=== PATIENT | male | born 1980 | race American Indian/Alaskan Native ===

== ENCOUNTER 2018-09-07 17:31 | Emergency (ER) | payer SELFPAY ==
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
== END 2018-09-07 18:12 | disposition left against medical advice (07) ==
LOC: ED 17:31

== ENCOUNTER 2019-12-18 07:30 | Emergency (ER) | payer BC ==
[2019-12-18 08:34] VITALS: BP 132/82
[2019-12-18 08:39] LABS: Basophils # (Auto) 0.1 K/mm3 (0.0-0.1); Basophils % (Auto) 1.3 % (0.0-1.8); Hematocrit 43.6 % (35.5-45.6); Hemoglobin 14.7 gm/dl (11.8-15.2); Lymphocytes # (Auto) 2.6 K/mm3 (1.2-5.4); Lymphocytes % (Auto) 26.8 % (13.4-35.0); Mean Corpuscular HGB Conc 34 % (32-34); Mean Corpuscular Volume 98 fl (84-94); Monocytes # (Auto) 0.9 K/mm3 (0.0-0.8); Monocytes % (Auto) 8.8 % (0.0-7.3); Platelet Count 314 K/mm3 (140-440); Red Blood Count 4.45 M/mm3 (3.65-5.03)
--- NOTE | 2019-12-18 08:42 | Emergency Department Report ---
ED General Adult HPI - General Chief complaint: GI Bleed Stated complaint: BLOOD IN STOOL Time Seen by Provider: 12/18/19 08:11 Source: patient Mode of arrival: Ambulatory Limitations: No Limitations - History of Present Illness Initial comments: This is a 39-year-old man who has a history of hemorrhoids, alcohol abuse and mental health disorder per previous records. He states he has had rectal bleeding this morning. He has had it before attributed to hemorrhoids. He is not actively bleeding. He does not describe abnormal stool. He denies fever or chills. He denies abdominal pain nausea or vomiting. He does not report trauma. -: Gradual, minutes(s) Severity scale (0 -10): 0 Associated Symptoms: denies other symptoms - Related Data Home Medications Medication Instructions Recorded Confirmed Last Taken No Known Home Medications [No 01/17/14 01/17/14 Unknown Reported Home Medications] Allergies Allergy/AdvReac Type Severity Reaction Status Date / Time No Known Allergies Allergy Verified 12/18/19 07:31 ED Review of Systems ROS: Stated complaint: BLOOD IN STOOL Other details as noted in HPI Constitutional: denies: chills, fever Eyes: denies: eye pain, eye discharge, vision change ENT: denies: ear pain, throat pain Respiratory: denies: cough, shortness of breath, wheezing Cardiovascular: denies: chest pain, palpitations Endocrine: no symptoms reported Gastrointestinal: as per HPI, hematochezia. denies: abdominal pain, nausea, diarrhea Genitourinary: denies: urgency, dysuria Musculoskeletal: denies: back pain, joint swelling, arthralgia Skin: denies: rash, lesions Neurological: denies: headache, weakness, paresthesias Psychiatric: denies: anxiety, depression Hematological/Lymphatic: denies: easy bleeding, easy bruising ED Past Medical Hx - Past Medical History Hx Hypertension: Yes Hx Psychiatric Treatment: Yes (DEPRESSION) - Social History Smoking Status: Current Every Day Smoker Substance Use Type: None - Medications Home Medications: Home Medications Medication Instructions Recorded Confirmed Last Taken Type No Known Home Medications [No 01/17/14 01/17/14 Unknown History Reported Home Medications] ED Physical Exam - General Limitations: No Limitations General appearance: alert, in no apparent distress - Head Head exam: Present: atraumatic, normocephalic - Eye Eye exam: Present: normal appearance. Absent: scleral icterus - ENT ENT exam: Present: mucous membranes moist - Neck Neck exam: Present: normal inspection - Respiratory Respiratory exam: Present: normal lung sounds bilaterally. Absent: respiratory distress - Cardiovascular Cardiovascular Exam: Present: regular rate, normal rhythm. Absent: systolic murmur, diastolic murmur, rubs, gallop - GI/Abdominal GI/Abdominal exam: Present: soft, normal bowel sounds. Absent: distended, tenderness, guarding, rebound - Rectal Rectal exam: Present: heme (-) stool, hemorrhoids (External hemorrhoids). Absent: mass, tenderness - Extremities Exam Extremities exam: Present: normal inspection - Back Exam Back exam: Present: normal inspection - Neurological Exam Neurological exam: Present: alert, oriented X3, CN II-XII intact. Absent: motor sensory deficit - Psychiatric Psychiatric exam: Present: normal affect, normal mood - Skin Skin exam: Present: warm, dry, intact, normal color. Absent: rash ED Course Vital Signs 12/18/19 12/18/19 07:31 08:24 Temperature 97.5 F L Pulse Rate 66 62 Respiratory 18 18 Rate Blood Pressure 146/76 Blood Pressure 132/82 [Left] O2 Sat by Pulse 100 99 Oximetry ED Medical Decision Making - Lab Data Result diagrams: 12/18/19 08:20 12/18/19 08:14 Laboratory Results - last 24 hr 12/18/19 12/18/19 12/18/19 08:14 08:20 08:20 WBC 9.9 RBC 4.45 Hgb 14.7 Hct 43.6 MCV 98 H MCH 33 H MCHC 34 RDW 14.0 Plt Count 314 Lymph % (Auto) 26.8 [place] % (Auto) 8.8 H Eos % (Auto) 0.0 Baso % (Auto) 1.3 Lymph # 2.6 [place] # 0.9 H Eos # 0.0 Baso # 0.1 Seg Neutrophils % 63.1 Seg Neutrophils # 6.2 PT 12.5 INR 0.95 APTT 26.8 Sodium 136 L Potassium 4.0 Chloride 97.5 L Carbon Dioxide 26 Anion Gap 17 BUN 15 Creatinine 1.0 Estimated GFR > 60 BUN/Creatinine Ratio 15 Glucose 101 H Calcium 9.6 Total Bilirubin Direct Bilirubin Indirect Bilirubin AST ALT Alkaline Phosphatase Total Protein Albumin Albumin/Globulin Ratio 12/18/19 08:22 WBC RBC Hgb Hct MCV MCH MCHC RDW Plt Count Lymph % (Auto) [place] % (Auto) Eos % (Auto) Baso % (Auto) Lymph # [place] # Eos # Baso # Seg Neutrophils % Seg Neutrophils # PT INR APTT Sodium Potassium Chloride Carbon Dioxide Anion Gap BUN Creatinine Estimated GFR BUN/Creatinine Ratio Glucose Calcium Total Bilirubin < 0.20 Direct Bilirubin < 0.2 Indirect Bilirubin 0.0 AST 28 ALT 18 Alkaline Phosphatase 104 Total Protein 7.4 Albumin 4.6 Albumin/Globulin Ratio 1.6 Critical care attestation.: If time is entered above; I have spent that time in minutes in the direct care of this critically ill patient, excluding procedure time. ED Disposition Clinical Impression: Rectal bleeding, External hemorrhoids Disposition: TO HOME OR SELFCARE Is pt being admited?: No Does the pt Need Aspirin: No Condition: Stable Instructions: Hemorrhoids (ED), Rectal Bleeding (ED) Additional Instructions: Medicine for hemorrhoids is available [id number]. I do recommend that you be evaluated with a headstart teacher. They may recommend colonoscopy for blood in your stool. You cannot definitely attribute this to hemorrhoids. Your stool test today was negative for blood. However, see referral for GI evaluation. Referrals: PRIMARY CARE [Primary Care Provider] - 3-5 Days [facility] [Provider Group] - 3-5 Days [facility] [Provider Group] - 3-5 Days Forms: Accompanied Note Time of Disposition: 11:11
[2019-12-18 08:53] LABS: BUN/Creatinine Ratio 15; Blood Urea Nitrogen 15 mg/dL (9-20); Calcium 9.6 mg/dL (8.4-10.2); Hemolysis Index 24
[2019-12-18 08:56] LABS: Alanine Aminotransferase 18 units/L (7-56); Albumin 4.6 g/dL (3.9-5)
[2019-12-18 08:58] LABS: INR 0.95 (0.87-1.13)
[2019-12-18 08:59] LABS: Partial Thromboplastin Time 26.8 Sec. (24.2-36.6)
[2019-12-18 09:07] LABS: Bilirubin,Direct < 0.2 mg/dL (0-0.2)
== END 2019-12-18 11:41 | disposition home or self-care (01) ==
LOC: ED 07:30
DX: K62.5 Hemorrhage of anus and rectum (principal); K64.4 Residual hemorrhoidal skin tags; I10 Essential (primary) hypertension; F32.9 Major depressive disorder, single episode, unspecified; F17.200 Nicotine dependence, unspecified, uncomplicated
CPT/HCPCS: 36415; 80048; 80076; 82271; 85025; 85610; 85730

== ENCOUNTER 2021-12-08 22:28 | Emergency (ER) | payer BC ==
[2021-12-09] MEDS ORDERED: AMOXICILLIN/K CLAV 500/125MG TAB PO ONE (01:46)
[2021-12-09] MEDS ORDERED: KETOROLAC 30 MG/1 ML INJ IM ONE (01:46)
[2021-12-09] MEDS ORDERED: ONDANSETRON 4 MG ODT TAB PO ONE (01:46)
[2021-12-09] MEDS ORDERED: oxyCODONE /ACETAMINOPHEN 5-325MG TAB PO ONE (01:46)
--- NOTE | 2021-12-09 02:09 | Emergency Department Report ---
ED General Adult HPI - General Chief complaint: Dental/Oral Stated complaint: MOUTH PAIN Source: patient Mode of arrival: Ambulatory Limitations: No Limitations - History of Present Illness Initial comments: Patient is a 41-year-old -Citizen Of [place] male with a history of hypertension and anxiety with depression who presents to the ED with complaint of acute onset persistent left mandibular premolar and molar toothache with swollen gums for the last 1 week, but which got worse in the last 2 days. Patient states that he has not been able to eat anything or sleep because of worsening pain despite taking [id number] medications for pain. Patient denies dizziness, syncope, chest pain or shortness of breath, change in vision, headache, numbness and tingling or weakness of upper and lower extremities bilaterally, sore throat, fever, chills, cough, nausea and vomiting. MD Complaint: Dental pain; gum pain and facial pain. -: Sudden, week(s) (1) Location: mouth Radiation: non-radiation Severity scale (0 -10): 8 Quality: aching, sharp Consistency: constant Improves with: none Worsens with: eating Associated Symptoms: denies other symptoms. denies: confusion, chest pain, cough, diaphoresis, fever/chills, headaches, loss of appetite, malaise, rash, shortness of breath, syncope, weakness Treatments Prior to Arrival: NSAID - Related Data Previous Rx's Medication Instructions Recorded Last Taken Type Acetaminophen/Codeine [Tylenol 1 tab PO Q6H PRN #12 tab 12/09/21 Unknown Rx /Codeine # 3 tab] Clindamycin [Clindamycin CAP] 300 mg PO Q8H #30 cap 12/09/21 Unknown Rx Ketorolac [Toradol] 10 mg PO Q8H PRN #20 tab 12/09/21 Unknown Rx Allergies Allergy/AdvReac Type Severity Reaction Status Date / Time No Known Allergies Allergy Verified 12/18/19 07:31 ED Review of Systems ROS: Stated complaint: MOUTH PAIN Other details as noted in HPI Constitutional: denies: chills, fever Eyes: denies: eye pain, eye discharge, vision change ENT: dental pain (Left mandibular premolar molar toothache with swollen gums). denies: ear pain, throat pain, congestion Respiratory: denies: cough, shortness of breath, wheezing Cardiovascular: denies: chest pain, palpitations Endocrine: no symptoms reported Gastrointestinal: denies: abdominal pain, nausea, vomiting, diarrhea, constipation, hematochezia Genitourinary: denies: urgency, dysuria Musculoskeletal: denies: back pain, joint swelling, arthralgia Skin: denies: rash, lesions Neurological: denies: headache, weakness, paresthesias Psychiatric: denies: anxiety, depression Hematological/Lymphatic: denies: easy bleeding, easy bruising ED Past Medical Hx - Past Medical History Hx Hypertension: Yes Hx Psychiatric Treatment: Yes (DEPRESSION) - Social History Smoking Status: Current Every Day Smoker Substance Use Type: None - Medications Home Medications: Home Medications Medication Instructions Recorded Confirmed Last Taken Type Acetaminophen/Codeine [Tylenol 1 tab PO Q6H PRN #12 tab 12/09/21 Unknown Rx /Codeine # 3 tab] Clindamycin [Clindamycin CAP] 300 mg PO Q8H #30 cap 12/09/21 Unknown Rx Ketorolac [Toradol] 10 mg PO Q8H PRN #20 tab 12/09/21 Unknown Rx ED Physical Exam - General Limitations: No Limitations General appearance: alert, in no apparent distress - Head Head exam: Present: atraumatic, normocephalic, normal inspection - Eye Eye exam: Present: normal appearance, PERRL, EOMI Pupils: Present: normal accommodation - ENT ENT exam: Present: mucous membranes moist, TM's normal bilaterally, normal external ear exam, other (Swollen, tender left mandibular gingiva; tender left mandibular premolar and molar teeth) - Neck Neck exam: Present: normal inspection, full ROM. Absent: tenderness - Respiratory Respiratory exam: Present: normal lung sounds bilaterally. Absent: respiratory distress, wheezes, rales, stridor, chest wall tenderness, accessory muscle use, prolonged expiratory - Cardiovascular Cardiovascular Exam: Present: normal rhythm, bradycardia, normal heart sounds. Absent: systolic murmur, diastolic murmur, rubs, gallop - GI/Abdominal GI/Abdominal exam: Present: soft, normal bowel sounds. Absent: tenderness, guarding, rebound, hyperactive bowel sounds, hypoactive bowel sounds, organomegaly, mass - Extremities Exam Extremities exam: Present: normal inspection, full ROM, normal capillary refill. Absent: tenderness - Back Exam Back exam: Present: normal inspection, full ROM. Absent: tenderness, CVA tenderness (R), CVA tenderness (L), muscle spasm, paraspinal tenderness, vertebral tenderness - Neurological Exam Neurological exam: Present: alert, oriented X3, CN II-XII intact, normal gait, reflexes normal - Psychiatric Psychiatric exam: Present: normal affect, normal mood - Skin Skin exam: Present: warm, dry, intact, normal color. Absent: rash ED Course Vital Signs 12/08/21 23:29 Temperature 98.4 F Pulse Rate 54 L Respiratory 20 Rate Blood Pressure 168/96 O2 Sat by Pulse 100 Oximetry ED Medical Decision Making - Medical Decision Making This is a 41-year-old -Citizen Of [place] male with a history of hypertension and anxiety with depression who presents to the ED with complaint of acute onset pe rsistent left mandibular premolar and molar toothache with swollen gums for the last 1 week, but which got worse in the last 2 days. Patient states that he has not been able to eat anything or sleep because of worsening pain despite taking [id number] medications for pain. In the ED, patient is alert and oriented x3 and is not in any distress. Patient was treated for pain in the ED. On reevaluation, patient's pain is well controlled medication. Patient will discharge home on pain medication and prophylactic antibiotics and advised to follow-up with his dentist in 7 to 10 days for reevaluation or return to the ED immediately if symptoms get worse. - Differential Diagnosis Dental abscess; gingivitis; dental caries Critical care attestation.: If time is entered above; I have spent that time in minutes in the direct care of this critically ill patient, excluding procedure time. ED Disposition Clinical Impression: Dental abscess, Chronic gingivitis, Dental caries Disposition: 01 HOME / SELF CARE / HOMELESS Is pt being admited?: No Does the pt Need Aspirin: No Condition: Stable Instructions: Dental Abscess, [id number], Trench Mouth, Dental Extraction, Ca re After, [id number] Additional Instructions: Take medication with food, drink plenty of fluids, follow-up with a dentist in 7 to 10 days for reevaluation. Return to the ED immediately if symptoms get worse. Prescriptions: Clindamycin [Clindamycin CAP] 300 mg PO Q8H #30 cap Ketorolac [Toradol] 10 mg PO Q8H PRN #20 tab PRN Reason: Pain , Severe (7-10) Acetaminophen/Codeine [Tylenol /Codeine # 3 tab] 1 tab PO Q6H PRN #12 tab PRN Reason: Pain , Severe (7-10) Referrals: [facility] [Outside] - 7-10 days Time of Disposition: 02:10 Print Language: URDU
[2021-12-09 02:41] VITALS: BP 156/84
== END 2021-12-09 03:40 | disposition home or self-care (01) ==
LOC: ED 22:28
DX: K04.7 Periapical abscess without sinus (principal); K05.10 Chronic gingivitis, plaque induced; K02.9 Dental caries, unspecified; I10 Essential (primary) hypertension; F32.9 Major depressive disorder, single episode, unspecified; F17.290 Nicotine dependence, other tobacco product, uncomplicated
CPT/HCPCS: 96372; 99282; J1885; J3490; Q0162